=== PATIENT | male | born 1935 | race Caucasian/White ===

== ENCOUNTER 2021-09-04 14:09 | Inpatient (IN) | payer OTHER ==
[~2021-09-04] VITALS: Ht 180.3 cm; Wt 119.2 kg
[2021-09-04 16:18] LABS: BASOPHILS ABSOLUTE AUTO 0.06 K/mm3 (0.00-0.23); BASOPHILS PERCENT AUTO 1 % (0-2); EOSINOPHILS ABSOLUTE AUTO 0.11 K/mm3 (0.00-0.68); EOSINOPHILS PERCENT AUTO 1 % (0-6); Hematocrit 42.8 % (37.0-53.0); Hemoglobin 13.9 g/dL (13.5-17.5); IMMATURE GRAN ABSOLUTE AUTO 0.03 K/mm3 (0.00-0.10); IMMATURE GRAN PERCENT AUTO 0 % (0-1); LYMPHOCYTES ABSOLUTE AUTO 2.09 K/mm3 (0.84-5.20); LYMPHOCYTES PERCENT AUTO 17 % (21-46); MONOCYTES ABSOLUTE AUTO 1.01 K/mm3 (0.16-1.47); MONOCYTES PERCENT AUTO 8 % (4-13); Mean Corpuscular HGB 29.4 pg (26.0-34.0); Mean Corpuscular HGB Conc 32.5 g/dL (31.5-36.5); Mean Corpuscular Volume 91 fL (80-100); Mean Platelet Volume 10.5 fL (9.1-12.4); NEUTROPHILS ABSOLUTE AUTO 9.08 K/mm3 (1.96-9.15); NEUTROPHILS PERCENT AUTO 73 % (41-73); Platelet Count 294 K/mm3 (150-400); RDW Coefficient Variation 12.3 % (11.7-14.2); RDW Standard Deviation 41.1 fL (35.1-46.3); Red Blood Cell Count 4.73 M/mm3 (4.30-5.90); White Blood Cell Count 12.38 K/mm3 (4.00-11.30)
[2021-09-04 16:42] LABS: Albumin, Blood 3.3 g/dL (3.4-5.0); Albumin/Globulin Ratio 0.8 (0.8-1.8); Bilirubin, Total 0.3 mg/dL (0.1-1.0); Bun/Creatinine Ratio 21.3 (12.0-20.0); Creatinine, Blood 1.27 mg/dL (0.60-1.20); Globulin, Blood 4.4 g/dL (2.2-4.0); Potassium, Blood 3.6 mmol/L (3.5-5.5); Total Protein, Blood 7.7 g/dL (6.4-8.2)
[2021-09-04] MEDS ORDERED: METF500 PO (18:41)
[2021-09-04] MEDS ORDERED: DULO60 PO (18:41)
[2021-09-04] MEDS ORDERED: HYDCHL25 PO (18:42)
[2021-09-04] MEDS ORDERED: AMLO5 PO (18:42)
[2021-09-04] MEDS ORDERED: GABA400 PO (18:43)
[2021-09-04] MEDS ORDERED: METO50ER PO (18:43)
[2021-09-04] MEDS ORDERED: Lisinopril-Hct1 EAC4 PO (18:43)
[2021-09-05 05:36] LABS: BASOPHILS ABSOLUTE AUTO 0.06 K/mm3 (0.00-0.23); BASOPHILS PERCENT AUTO 1 % (0-2); EOSINOPHILS PERCENT AUTO 1 % (0-6); Hematocrit 45.9 % (37.0-53.0); Hemoglobin 14.8 g/dL (13.5-17.5); IMMATURE GRAN ABSOLUTE AUTO 0.03 K/mm3 (0.00-0.10); IMMATURE GRAN PERCENT AUTO 0 % (0-1); LYMPHOCYTES ABSOLUTE AUTO 1.69 K/mm3 (0.84-5.20); LYMPHOCYTES PERCENT AUTO 15 % (21-46); MONOCYTES ABSOLUTE AUTO 0.81 K/mm3 (0.16-1.47); MONOCYTES PERCENT AUTO 7 % (4-13); Mean Corpuscular HGB 29.5 pg (26.0-34.0); Mean Corpuscular HGB Conc 32.2 g/dL (31.5-36.5); Mean Corpuscular Volume 91 fL (80-100); Mean Platelet Volume 10.5 fL (9.1-12.4); NEUTROPHILS ABSOLUTE AUTO 8.28 K/mm3 (1.96-9.15); NEUTROPHILS PERCENT AUTO 76 % (41-73); Platelet Count 314 K/mm3 (150-400); RDW Coefficient Variation 12.3 % (11.7-14.2); RDW Standard Deviation 41.3 fL (35.1-46.3); Red Blood Cell Count 5.02 M/mm3 (4.30-5.90); White Blood Cell Count 10.97 K/mm3 (4.00-11.30)
[2021-09-05 06:08] LABS: Albumin, Blood 3.3 g/dL (3.4-5.0); Albumin/Globulin Ratio 0.8 (0.8-1.8); Bilirubin, Total 0.4 mg/dL (0.1-1.0); Bun/Creatinine Ratio 19.3 (12.0-20.0); Calcium, Blood 9.4 mg/dL (8.5-10.1); Creatinine, Blood 1.14 mg/dL (0.60-1.20); Globulin, Blood 4.4 g/dL (2.2-4.0); Total Protein, Blood 7.7 g/dL (6.4-8.2)
[2021-09-07 05:03] LABS: BASOPHILS ABSOLUTE AUTO 0.05 K/mm3 (0.00-0.23); BASOPHILS PERCENT AUTO 1 % (0-2); EOSINOPHILS ABSOLUTE AUTO 0.12 K/mm3 (0.00-0.68); EOSINOPHILS PERCENT AUTO 2 % (0-6); Hemoglobin 14.1 g/dL (13.5-17.5); IMMATURE GRAN ABSOLUTE AUTO 0.02 K/mm3 (0.00-0.10); IMMATURE GRAN PERCENT AUTO 0 % (0-1); LYMPHOCYTES ABSOLUTE AUTO 1.34 K/mm3 (0.84-5.20); LYMPHOCYTES PERCENT AUTO 19 % (21-46); MONOCYTES ABSOLUTE AUTO 0.64 K/mm3 (0.16-1.47); MONOCYTES PERCENT AUTO 9 % (4-13); Mean Corpuscular HGB 29.4 pg (26.0-34.0); Mean Corpuscular HGB Conc 32.8 g/dL (31.5-36.5); Mean Corpuscular Volume 90 fL (80-100); Mean Platelet Volume 10.3 fL (9.1-12.4); NEUTROPHILS ABSOLUTE AUTO 4.94 K/mm3 (1.96-9.15); NEUTROPHILS PERCENT AUTO 70 % (41-73); Platelet Count 266 K/mm3 (150-400); RDW Coefficient Variation 12.3 % (11.7-14.2); RDW Standard Deviation 40.7 fL (35.1-46.3); Red Blood Cell Count 4.79 M/mm3 (4.30-5.90); White Blood Cell Count 7.11 K/mm3 (4.00-11.30)
[2021-09-07 05:25] LABS: Albumin, Blood 3.1 g/dL (3.4-5.0); Albumin/Globulin Ratio 0.8 (0.8-1.8); Bilirubin, Total 0.4 mg/dL (0.1-1.0); Bun/Creatinine Ratio 13.7 (12.0-20.0); Calcium, Blood 9.7 mg/dL (8.5-10.1); Creatinine, Blood 1.17 mg/dL (0.60-1.20); Potassium, Blood 3.8 mmol/L (3.5-5.5); Total Protein, Blood 7.1 g/dL (6.4-8.2)
[2021-09-07] MEDS ORDERED: CREON DR 12,001 EACH PO (10:28)
[2021-09-07] MEDS ORDERED: HUMULIN R500 UNIT/1 (10:30)
[2021-09-07] MEDS ORDERED: BASAGLAR K100 UNIT/1 SC (10:30)
== END 2021-09-07 12:25 | disposition home or self-care (01) | DRG 389 ==
LOC: ER 14:09 → MEDS 17:24
PROVIDERS: Physician Assistant; ADMIT Internal Medicine
DX: K56.600 Partial intestinal obstruction, unspecified as to cause (principal); R65.10 Systemic inflammatory response syndrome (SIRS) of non-infectious origin without acute organ dysfunction; E23.0 Hypopituitarism; E87.1 Hypo-osmolality and hyponatremia; N17.9 Acute kidney failure, unspecified; K59.09 Other constipation; Z66 Do not resuscitate; N40.0 Benign prostatic hyperplasia without lower urinary tract symptoms; K42.9 Umbilical hernia without obstruction or gangrene; E66.01 Morbid (severe) obesity due to excess calories; H40.9 Unspecified glaucoma; E78.5 Hyperlipidemia, unspecified; N18.30 Chronic kidney disease, stage 3 unspecified; Z68.37 Body mass index [BMI] 37.0-37.9, adult; I12.9 Hypertensive chronic kidney disease with stage 1 through stage 4 chronic kidney disease, or unspecified chronic kidney disease; E11.22 Type 2 diabetes mellitus with diabetic chronic kidney disease; I25.10 Atherosclerotic heart disease of native coronary artery without angina pectoris; F41.9 Anxiety disorder, unspecified; F32.A Depression, unspecified; Z79.4 Long term (current) use of insulin; Z79.899 Other long term (current) drug therapy; I25.2 Old myocardial infarction; Z90.49 Acquired absence of other specified parts of digestive tract; Z95.5 Presence of coronary angioplasty implant and graft; Z98.890 Other specified postprocedural states
CPT/HCPCS: 36415; 74177; 80053; 82150; 82947; 83605; 83690; 85025; 94660; 94762; 96361; 96374; 96375; 99285-25; A9270; J1170; J1815; J2405; J7030; J7120; Q9967

== ENCOUNTER 2021-09-21 10:49 | Inpatient (IN) | payer OTHER, MEDICARE ==
[~2021-09-21] VITALS: Ht 180.3 cm; Wt 119.8 kg
[~2021-09-21 10:49] MED LIST: AMLO5 PO; BASAGLAR K100 UNIT/1 SC; CREON DR 12,001 EACH PO; DULO60 PO; GABA400 PO; HUMULIN R500 UNIT/1; HYDCHL25 PO; Lisinopril-Hct1 EAC4 PO; METF500 PO; METO50ER PO
[2021-09-21 11:19] LABS: BASOPHILS ABSOLUTE AUTO 0.06 K/mm3 (0.00-0.23); BASOPHILS PERCENT AUTO 1 % (0-2); EOSINOPHILS ABSOLUTE AUTO 0.08 K/mm3 (0.00-0.68); EOSINOPHILS PERCENT AUTO 1 % (0-6); Hematocrit 42.3 % (37.0-53.0); Hemoglobin 13.4 g/dL (13.5-17.5); IMMATURE GRAN ABSOLUTE AUTO 0.04 K/mm3 (0.00-0.10); IMMATURE GRAN PERCENT AUTO 0 % (0-1); LYMPHOCYTES ABSOLUTE AUTO 1.66 K/mm3 (0.84-5.20); LYMPHOCYTES PERCENT AUTO 17 % (21-46); MONOCYTES ABSOLUTE AUTO 0.81 K/mm3 (0.16-1.47); MONOCYTES PERCENT AUTO 8 % (4-13); Mean Corpuscular HGB 29.3 pg (26.0-34.0); Mean Corpuscular HGB Conc 31.7 g/dL (31.5-36.5); Mean Corpuscular Volume 92 fL (80-100); Mean Platelet Volume 10.8 fL (9.1-12.4); NEUTROPHILS ABSOLUTE AUTO 7.22 K/mm3 (1.96-9.15); NEUTROPHILS PERCENT AUTO 73 % (41-73); Platelet Count 249 K/mm3 (150-400); RDW Coefficient Variation 13.2 % (11.7-14.2); RDW Standard Deviation 44.4 fL (35.1-46.3); Red Blood Cell Count 4.58 M/mm3 (4.30-5.90); White Blood Cell Count 9.87 K/mm3 (4.00-11.30)
[2021-09-21 11:36] LABS: Albumin, Blood 3.1 g/dL (3.4-5.0); Albumin/Globulin Ratio 0.8 (0.8-1.8); Bilirubin, Total 0.4 mg/dL (0.1-1.0); Calcium, Blood 9.5 mg/dL (8.5-10.1); Creatinine, Blood 1.27 mg/dL (0.60-1.20); Potassium, Blood 3.9 mmol/L (3.5-5.5); Total Protein, Blood 7.1 g/dL (6.4-8.2)
[2021-09-21 15:59] LABS: Anti-Xa UFH, PHA Monitoring <0.10 IU/mL; International Normalized Ratio 0.98; Prothrombin Time Results 10.3 Sec (9.7-11.5)
--- NOTE | 2021-09-21 18:01 | NUR ---
SHIFT SUMMARY; ADMIT FROM ED TODAY. TRANSFERS FROM [facility] TO BED WITH STANDBY ASSIST. A/A/OX4. NITRO PASTE TO LEFT CHEST WALL. EVALUATED BY CARDIOLOGY IN ED. HEPARIN STARTED PER ORDERS, INFUSING AT 15UNIT/KG. INDEPENDANT IN ROOM. REPOSITIONS SELF NEEDED IN BED. VSS, WILL CONTINUE TO MONITOR AND TREAT UNTIL CHANGE OF SHIFT.
[2021-09-22 05:33] LABS: Calcium, Blood 9.2 mg/dL (8.5-10.1); Creatinine, Blood 1.11 mg/dL (0.60-1.20); Potassium, Blood 3.6 mmol/L (3.5-5.5)
--- NOTE | 2021-09-22 14:40 | NUR ---
PT TAKEN TO [facility] VIA BED. HEPARIN GTT STOPPED AT THIS TIME BY MANAGER HARBOR RN.
--- NOTE | 2021-09-22 18:32 | NUR ---
PT RETURNED FROM [employer] AT APROX 1730, AWAKE AND ALERT, TR BAND IN PLACE TO R WRIST, NO BLEEDING OR HEMATOMA NOTED. REPORT RECEIVED FROM [employer] TECHNICIAN RN. PT'S AT BEDSIDE UPDATED ON PT'S CONDITION. PT INSTRUCTED ON LIMITATIONS TO R WRIST, ARM BOARD IN PLACE, PT VERBALIZES UNDERSTANDING. NO NEEDS IDENTIFIED AT THIS TIME. CALL LIGHT IN REACH. WILL CONTINUE TO MONITOR AND GIVE REPORT TO NOC SHIFT RN.
[2021-09-22 19:26] LABS: CHOL/HDL RATIO 4.2; Cholesterol 169 mg/dL (50-200); HDL Cholesterol 40 mg/dL (>39); LDL/HDL RATIO 2.6; Low Density Lipoprotein Chol 104 mg/dL (0-110); Triglycerides 127 mg/dL (30-160); Very Low Density Lipoprot Chol 25 mg/dL (6-32)
--- NOTE | 2021-09-22 20:00 | NUR ---
ASSUMED CARE OF PT AT 1915. REPORT RECEIVED AT BEDSIDE. TR BAND TO RIGHT RADIAL WITHOUT S/S OOZING OR HEMATOMA. HAVE BEGUN PROCESS OF DEFLATION. PT ALERT AND ORIENTED. PLEASANT AND COOPERATIVE WITH CARE AND ASSESSMENT. WILL REVIEW CHART AND PLAN OF CARE FOR THIS PT.
--- NOTE | 2021-09-23 03:23 | NUR ---
UT HAS BEEN ABLE TO MOVE ABOUT IN BED ON HIS OWN. RIGHT RADIAL SITE WITHOUT SIGNS OF OOZING OR HEMATOMA. OPSITE COVERS PUNCTURE. PT VOICES UNDERSTANDING OF PROTECTING RADIAL SITE AND KEEPING ARM BOARD IN PLACE. DID REQUIRE 3 L/M O2 BLEED IN TO CPAP UNIT. PT DID DESATURATE TO 85 PERCENT WHILE ASLEEP WITHOUT SUPPLEMENTAL OXYGEN.
--- NOTE | 2021-09-23 05:40 | NUR ---
NO CHANGES FROM PREVIOUS ASSESSMENT. PT HAS NO COMPLAINTS OF CHEST PAIN OR PRESSURE. MOVES ABOUT IN BED ON HIS OWN. ALERT AND ORIENTED. FOLLOWS DIRECTIONS WELL. NO S/S HEMATOMA OR OOZING. WILL CONTINUE TO MONITOR PT, AND WILL REPORT OFF TO ONCOMING RN.
[2021-09-23 06:06] LABS: Albumin, Blood 2.3 g/dL (3.4-5.0); Anion Gap 4 mmol/L (6-16); Blood Urea Nitrogen 15 mg/dL (8-24); Bun/Creatinine Ratio 16.8 (12.0-20.0); CO2, Blood 28 mmol/L (21-32); Chloride, Blood 107 mmol/L (98-108); Glomerular Filtration Rate 85 (60-); Glucose, Blood 149 mg/dL (70-99); Phosphorus, Blood 2.8 mg/dL (2.5-4.9); Potassium, Blood 3.3 mmol/L (3.5-5.5); Sodium, Blood 139 mmol/L (136-145)
[2021-09-23 06:13] LABS: BASOPHILS ABSOLUTE AUTO 0.03 K/mm3 (0.00-0.23); BASOPHILS PERCENT AUTO 0 % (0-2); EOSINOPHILS PERCENT AUTO 1 % (0-6); Hematocrit 33.8 % (37.0-53.0); Hemoglobin 10.8 g/dL (13.5-17.5); IMMATURE GRAN ABSOLUTE AUTO 0.03 K/mm3 (0.00-0.10); IMMATURE GRAN PERCENT AUTO 0 % (0-1); LYMPHOCYTES ABSOLUTE AUTO 0.93 K/mm3 (0.84-5.20); LYMPHOCYTES PERCENT AUTO 13 % (21-46); MONOCYTES ABSOLUTE AUTO 0.68 K/mm3 (0.16-1.47); MONOCYTES PERCENT AUTO 10 % (4-13); Mean Corpuscular HGB 29.4 pg (26.0-34.0); Mean Corpuscular Volume 92 fL (80-100); Mean Platelet Volume 10.7 fL (9.1-12.4); NEUTROPHILS ABSOLUTE AUTO 5.33 K/mm3 (1.96-9.15); NEUTROPHILS PERCENT AUTO 75 % (41-73); Platelet Count 215 K/mm3 (150-400); RDW Coefficient Variation 13.2 % (11.7-14.2); RDW Standard Deviation 44.6 fL (35.1-46.3); Red Blood Cell Count 3.67 M/mm3 (4.30-5.90)
--- NOTE | 2021-09-23 09:04 | NUR ---
AM NOTE PT ALERT AND ORIENTED AT BASELINE, PLEASANT AND COOPERATIVE. VITALS SIGNS STABLE. PT WAS ABLE TO WALK AROUND THE UNIT VIA WALKER WITH NO ISSUES, DENIED ANY CHEST PAIN. PT HAS BEEN GETTING UP AND WALKING AROUND INDEPENDENTLY IN THE ROOM, NO ISSUES. RIGHT RADIAL SITE WITH CLEAR DRESSING INTACT. NO SIGNS OF REDNESS OR HEMATOMA. DULOXETINE RESUMED PER PT'S REQUESTS. TOLERATED BREAKFAST. FOR POSSIBLE DISCHARGE TODAY IF NO ISSUES, FAMILY CURRENTLY AT BEDSIDE, WILL CONTINUE TO MONITOR
[2021-09-23] MEDS ORDERED: ASPI81CH PO (12:20)
[2021-09-23] MEDS ORDERED: ATOR80 PO (12:21)
[2021-09-23] MEDS ORDERED: CLOP75 PO (12:21)
--- NOTE | 2021-09-23 13:47 | NUR ---
PT DISCHARGE TO HOME WITH DISCHARGE ORDERS, NEW [facility] SENT [facility] FOR [facility] PT INFORMED THAT THEY WILL CONTACT PT TO MAKE FF-UP APPT WITHIN 2 WEEKS. ALL DISCHARGE INSTRUCTIONS DISCLOSED WITH FAMILY MEMBER AT BEDSIDE AND DAUGHTER. DR LANGE WAS ABLE TO TALK TO THE FAMILY AND PT BEFORE DISCHAGRE. NO CEHST PAINS REPORTED SINCE THE BEGINNING OF THE SHIFT. PT HAS BEEN MOVING AROUNDS INDEPENDENT IN THE ROOM. NO OTHER ISSUES REPORTED. ALL BELONGING SENT WITH THE PT, ACCOMPANIED VIA WHEELCHAIR FOR TRANSPORT
== END 2021-09-23 13:48 | disposition home or self-care (01) | DRG 247 ==
LOC: ER 10:49 → PCU 13:14
PROVIDERS: Emergency Medicine; Family Medicine; Nurse Practitioner Acute Care; ADMIT Internal Medicine
PROC: 027136Z Dilation of Coronary Artery, Two Arteries with Three Drug-eluting Intraluminal Devices, Percutaneous Approach (ICD-10-PCS; principal; 2021-09-22)
PROC: 4A023N7 Measurement of Cardiac Sampling and Pressure, Left Heart, Percutaneous Approach (ICD-10-PCS; 2021-09-22)
PROC: B2111ZZ Fluoroscopy of Multiple Coronary Arteries using Low Osmolar Contrast (ICD-10-PCS; 2021-09-22)
DX: I21.4 Non-ST elevation (NSTEMI) myocardial infarction (principal); K86.1 Other chronic pancreatitis; N17.9 Acute kidney failure, unspecified; Z66 Do not resuscitate; I25.10 Atherosclerotic heart disease of native coronary artery without angina pectoris; R10.9 Unspecified abdominal pain; E78.00 Pure hypercholesterolemia, unspecified; F41.9 Anxiety disorder, unspecified; F32.A Depression, unspecified; H81.10 Benign paroxysmal vertigo, unspecified ear; E78.5 Hyperlipidemia, unspecified; E66.01 Morbid (severe) obesity due to excess calories; G47.33 Obstructive sleep apnea (adult) (pediatric); R94.31 Abnormal electrocardiogram [ECG] [EKG]; E11.9 Type 2 diabetes mellitus without complications; K57.90 Diverticulosis of intestine, part unspecified, without perforation or abscess without bleeding; I10 Essential (primary) hypertension; Z68.26 Body mass index [BMI] 26.0-26.9, adult; I25.2 Old myocardial infarction; Z85.828 Personal history of other malignant neoplasm of skin; Z90.49 Acquired absence of other specified parts of digestive tract; Z98.890 Other specified postprocedural states; Z98.41 Cataract extraction status, right eye; Z95.5 Presence of coronary angioplasty implant and graft; Z79.82 Long term (current) use of aspirin; Z79.4 Long term (current) use of insulin; Z79.899 Other long term (current) drug therapy
CPT/HCPCS: 36415; 71045; 74176; 76937; 80048; 80053; 80061; 80069; 82947; 83690; 84484; 85025; 85347; 85520; 85610; 92921; 93005; 93010; 93306; 93454; 94660; 94762; 99152; 99153; 99285-25; A9270; C1725; C1769; C1874; C1887; C1894; C9600; J1644; J1815; J2250; J3010; J7030; J7040; Q9967

== ENCOUNTER 2021-10-29 05:23 | Day surgery (SDC) | payer OTHER | END 2021-10-29 12:20 | disposition home or self-care (01) | LOC: MHTC 05:23 | PROC: 027034Z Dilation of Coronary Artery, One Artery with Drug-eluting Intraluminal Device, Percutaneous Approach (ICD-10-PCS; principal; 2021-10-29) | DX: I25.110 Atherosclerotic heart disease of native coronary artery with unstable angina pectoris (principal); I10 Essential (primary) hypertension; E11.9 Type 2 diabetes mellitus without complications; E78.00 Pure hypercholesterolemia, unspecified; I25.2 Old myocardial infarction; Z66 Do not resuscitate; Z95.5 Presence of coronary angioplasty implant and graft; Z79.82 Long term (current) use of aspirin; Z79.02 Long term (current) use of antithrombotics/antiplatelets; Z79.4 Long term (current) use of insulin ==

== ENCOUNTER → 2024-08-09 | Outpatient (CLI) | payer OTHER ==
[~2024-08-09] MED LIST changes: +ASPI81CH PO; +ATOR80 PO; +CLOP75 PO; +NITR.4SL SL; +NITRO-DUR1 EAC1 TOP
== END ==
DX: R21 Rash and other nonspecific skin eruption (principal)
CPT/HCPCS: 88312